=== PATIENT | female | born 1970 | race Caucasian/White ===

== ENCOUNTER 2019-10-27 17:06 | Emergency (ER) | payer OTHER, SELFPAY ==
[2019-10-27 17:38] VITALS: BP 149/87; PULSE 94; RESP 20; TEMP 37.1; O2SAT 100
--- NOTE | 2019-10-27 17:56 | ED.SKABFB ---
HPI - Skin/Abscess/Foreign Bdy General Chief complaint: Skin/Abscess/Foreign Body Stated complaint: eyes itching Time Seen by Provider: 10/27/19 17:56 Source: patient and RN notes reviewed History of Present Illness HPI narrative: Patient is a 49-year-old female that presents the urgent care with complaints of a one-week history of itchy swollen eyes. Patient states that it got worse after using fresh cucumbers on the eyes last night. Patient states that she has been taking Benadryl and using cortisone cream around the area without much relief. Denies any known trauma or injury to the eyes. No other acute complaints. No acute distress noted. Patient read the plan of care. Related Data Allergies Allergy/AdvReac Type Severity Reaction Status Date / Time morphine Allergy Severe Anaphylactic Verified 03/14/18 13:14 Shock meperidine Allergy Unknown Unknown Verified 03/14/18 13:14 Penicillins Allergy Unknown Verified 03/14/18 13:14 Review of Systems Review of Systems: Narrative: CONSTITUTIONAL: Denies fever, chills, or sweats. EYES: Reports of bilateral eye itchiness and redness ENT: Denies rhinorrhea, congestion, sore throat, or otalgia. CARDIOVASCULAR: Denies chest pain, palpitations, or edema. RESPIRATORY: Denies cough or dyspnea. GASTROINTESTINAL: Denies abdominal pain, nausea, vomiting, or diarrhea. GENITOURINARY: Denies dysuria or hematuria. SKIN: Denies rash or itching. MUSCULOSKELETAL: Denies back pain, joint pain, or myalgia. NEUROLOGIC: Denies headache, numbness, or weakness. All other systems reviewed are negative, except as documented in HPI. PMFSH Comments At the time of my signature, I reviewed and agree with the nursing past medical, surgical, social, and family history. There is no relevant family history pertinent to the patient complaint. Exam Narrative: Exam Narrative: GENERAL: This is a well-nourished, well-developed patient, in no apparent distress. HEAD: normocephalic, atraumatic. EYES: PERRL. Sclera clear/white. Vision is grossly intact. Mild bilateral injected conjunctiva without drainage. EARS: External ears normal NOSE: External nose normal with no obvious nasal discharge THROAT: Mucous membranes moist NECK: Neck supple CARDIOVASCULAR: Regular rate and rhythm without murmurs, gallops, or rubs. RESPIRATORY: Clear to auscultation. Breath sounds equal bilaterally. No wheezes, rales, or rhonchi. SKIN: Notable erythemic, pruritic contact dermatitis surrounding bilateral eyes. Warm, intact with no suspicious lesions or rash, good texture and turgor. NEURO: awake, alert, and oriented to person, place and time. There were no obvious focal neurologic abnormalities. EXTREMITIES: No clubbing, cyanosis, or edema. Course Vital Signs Vital signs: Vital Signs Temperature 98.7 F 10/27/19 17:38 Pulse Rate 94 10/27/19 17:38 Respiratory Rate 20 10/27/19 17:38 Blood Pressure 149/87 H 10/27/19 17:38 Pulse Oximetry 100 10/27/19 17:38 Temperature 98.7 F 10/27/19 17:38 Pulse Rate 94 10/27/19 17:38 Respiratory Rate 20 10/27/19 17:38 Blood Pressure 149/87 H 10/27/19 17:38 Pulse Oximetry 100 10/27/19 17:38 Reviewed MDM - Skin/Abscess/Foreign Bdy MDM Narrative Medical decision making narrative: Advised patient to complete steroid regimen as prescribed. Continue to use Benadryl as needed at bedtime. May also use Claritin or Zyrtec during the day if necessary. May use Aquaphor or Vaseline to the rash. Stop using hydrocortisone on the face. If you develop any increase in symptoms follow-up with PCP. Differential Diagnosis Differential diagnosis: Likely viral exanthem, urticaria, impetigo and contact dermatitis Critical Care Time Critical Care Time Critical Care Time: No Discharge Plan Discharge Clinical Impression: Contact dermatitis, Dermatitis, eyelid Patient Disposition: Home, Self-Care Condition: Stable Instructions: Antibiotic Form, Contact Dermatitis (ED)
== END 2019-10-27 18:17 | disposition home or self-care (01) ==
PROVIDERS: Emergency Provider Nurse Practitioner Family; PCP Family Medicine
DX: L30.9 Dermatitis, unspecified (principal)
CPT/HCPCS: 99213; G0463

== ENCOUNTER 2019-12-10 10:08 | Emergency (ER) | payer OTHER, SELFPAY ==
[2019-12-10 10:22] VITALS: BP 148/84; PULSE 90; RESP 18; TEMP 36.9; O2SAT 100
--- NOTE | 2019-12-10 10:34 | ED.EYEPROB ---
HPI - Eye Problem General Chief complaint: Eye Problems Stated complaint: Eye Pain Time Seen by Provider: 12/10/19 10:20 Source: patient Mode of arrival: ambulatory Limitations: no limitations History of Present Illness HPI Narrative: Sarahi Mitchell is a 49 yo female with no PMH who comes to express care with eye irritation for the past month. States that her eyelids are itching and by the end of the day they start to swell and burn Related Data Allergies Allergy/AdvReac Type Severity Reaction Status Date / Time morphine Allergy Severe Anaphylactic Verified 03/14/18 13:14 Shock meperidine Allergy Unknown Unknown Verified 03/14/18 13:14 Penicillins Allergy Unknown Verified 03/14/18 13:14 Review of Systems Review of Systems: Narrative: CONSTITUTIONAL: Denies fever, chills, sweats. EYES: Denies visual changes, has redness and swelling, no discharge. ENT: Denies rhinorrhea, congestion, sore throat, otalgia. CARDIOVASCULAR: Denies chest pain, palpitations, edema. RESPIRATORY: Denies dyspnea, wheezing, cough GASTROINTESTINAL: Denies abdominal pain, nausea, vomiting, diarrhea. GENITOURINARY: Denies dysuria, hematuria, abnormal discharge SKIN: Denies rash or itching. NEUROLOGIC: Denies numbness, or focal weakness. PSYCHIATRIC: Denies anxiety or depression. [facility] Family History Family History Other Cancer Social History Social History (Updated 12/10/19 @ 10:37 by Fabiola Campbell CNP) Smoking status: Never smoker Alcohol intake: current Gender identity (if verbalized by the patient): Female Comments At time of signature, I agree with nursing past medical, surgical, social and family history. There is no relevant family history pertinent to the presenting complaint. Exam Narrative: Exam Narrative: GENERAL: This is a well-nourished, well-developed patient, in mild apparent distress. HEAD: normocephalic, atraumatic. EYES: Sclera clear/erythema -bilateral eye lid itching and mild swelling ,vision is grossly intact. EARS: External ears normal, auditory canals clear and without drainage, TMs normal without perforation. Hearing grossly intact. NOSE: External nose normal with no obvious nasal discharge, THROAT: Mucous membranes moist, posterior pharynx clear. NECK: Neck supple, non-tender CARDIOVASCULAR: Regular rate and rhythm without murmurs, gallops, or rubs. RESPIRATORY: Clear to auscultation. Breath sounds equal bilaterally. No wheezes, rales, or rhonchi. GASTROINTESTINAL: Abdomen soft, non-tender, SKIN: warm, intact with no suspicious lesions or rash, good texture and turgor. NEURO: awake, alert, and oriented to person, place and time. There were no obvious focal neurologic abnormalities. Steady gait EXTREMITIES: Normal range of motion. N BACK: Nontender without deformity or crepitance. No flank tenderness. Course Course Emergency Course: Started on Medrol Dosepak and eyedrops Vital Signs Vital signs: Vital Signs Temperature 98.4 F 12/10/19 10:22 Pulse Rate 90 12/10/19 10:22 Respiratory Rate 18 12/10/19 10:22 Blood Pressure 148/84 H 12/10/19 10:22 Pulse Oximetry 100 12/10/19 10:22 Temperature 98.4 F 12/10/19 10:22 Pulse Rate 90 12/10/19 10:22 Respiratory Rate 18 12/10/19 10:22 Blood Pressure 148/84 H 12/10/19 10:22 Pulse Oximetry 100 12/10/19 10:22 MDM - Eye Problem Differential Diagnosis Differential diagnosis: Likely corneal abrasion, conjunctivitis and other Discharge Plan Discharge Clinical Impression: Blepharitis Qualifiers: Blepharitis type: unspecified type Laterality: bilateral Eyelid: upper Qualified Code(s): H01.001 - Unspecified blepharitis right upper eyelid Patient Disposition: Home, Self-Care Condition: Stable Instructions: Blepharitis (ED) Prescriptions: New methylprednisolone [Medrol (Sha)] 4 mg tablets,dose pack See Rx Instructions .ROUTE .COMPLEX Qty: 21 RF: 0
== END 2019-12-10 10:46 | disposition home or self-care (01) ==
PROVIDERS: Emergency Provider Nurse Practitioner; PCP Family Medicine
DX: H01.006 Unspecified blepharitis left eye, unspecified eyelid (principal); H01.003 Unspecified blepharitis right eye, unspecified eyelid
CPT/HCPCS: 99213; G0463